=== PATIENT | male | born 1970 | race Hispanic/Latino ===

== ENCOUNTER 2017-01-20 13:54 | Emergency (ER) | payer SELFPAY ==
--- NOTE | 2017-01-20 13:58 | ED.REPORT ---
HPI-Chest Pain 40 and Over Date of Service Jan 20, 2017 ED Provider: Dr. Agee Pt is a generally healthy 46 y/o male presenting to the ED c/o CP onset 02:00 this morning. The patient experienced sudden-onset severe left-sided CP with radiation down the left arm and went to a fire station to be evaluated at which time EMS was called. EMS arrived to find him pale, diaphoretic, and uncomfortable. He was given nitroglycerine which seemed to relieve his symptoms. His CP is 4/10 at time of interview. The patient works nights and did have 4 beers and cocaine at 02:00 this morning. This was the first time he used cocaine. He denies any other drug use and does smoke cigarettes. Pt denies SOB, fever. Nursing Notes Stated Complaint: CHEST PAIN Nursing Notes Reviewed: Yes Allergies: Coded Allergies: No Known Allergies (Unverified , 01/20/17) General Time Seen by MD: 13:58 Chief Complaint Chest pain Hx Obtained From: Patient, EMS Arrived By: Ambulance Sudden in Onset?: No Onset Occurred: 9 - 12 hours ago Symptom Duration: Since onset Location: : Substernal Quality: Painful Radiation: : Arm left Severity: Current: Pain level 4 out of 10 Severity: Maximum: Severe Recent Healthcare: No recent hospitalization Similar Sx Previous: No Past Medical History Past Medical History Gout Past Surgical History Denies Smoking History Current Every Day Smoker Social History Alcohol Use: 1-3 per day Drug Use: Cocaine Ambulatory Status Independent Review of Systems Constitutional: Denies: Chills, Fever Respiratory: Denies: Non-productive cough, Shortness of breath Cardiovascular: Reports: Chest pain GI: Denies: Abdominal pain Skin: Reports Diaphoresis Complete sys rev & neg: except as marked. Physical Exam Initial Vital Signs Vital Signs (First) Date Time Temp Pulse Resp B/P Pulse Ox O2 Delivery O2 Flow Rate FiO2 01/20/17 14:03 37 105 20 127/77 99 Room Air Initial VS: Reviewed, Vital signs abnormal Head / Eyes: Atraumatic, Normocephalic ENT: Mucous membranes moist, Conjunctiva normal Neck: Full range of motion Extremities: Vascular intact, Neuro intact, No swelling Skin: Warm, Dry, No cyanosis Neurologic: Alert, Oriented, Nonfocal Psychiatric: Mood/affect normal, Behavior normal, Normal thought content General/Constitutional: Awake, Alert, No acute distress, Cooperative, Not toxic appearing Respiratory / Chest: Breath sounds NL, Breath sounds = bilat, No respiratory distress, No rales, No rhonchi, No wheezing Cardiovascular: Regular rhythm, Heart sounds NL, No gallop, No murmurs, No rubs , Cap refill not delayed, Peripheral circulation NL, Pulses = bilaterally Heart Rate / Rhythm: Positive: Tachycardia Abdomen: Atraumatic, Soft, Non-tender, No guarding, No rebound, No distention, No palpable mass Interpretation & Diagnostics Lab Results Interpretation Result Diagram: 01/20/17 1358 01/20/17 1358 Test 01/20/17 13:58 01/20/17 16:03 White Blood Count 12.0th/mm3 (3.8-10.1) Red Blood Count 5.00mil/mm3 (4.40-5.80) Hemoglobin 15.6g/dL (13.8-17.2) Hematocrit 44.6% (41.0-50.0) Mean Corpuscular Volume 89.2fL (81-100) Mean Corpuscular Hemoglobin 31.2pg (27.0-35.0) Mean Corpuscular Hemoglobin Concent 35.0% (32.0-37.0) Red Cell Distribution Width 12.9% (12.3-15.4) Platelet Count 393bil/L (150-400) Neutrophils (%) (Auto) 75.5% (40-74) Lymphocytes (%) (Auto) 17.9% (14-46) Monocytes (%) (Auto) 6.0% (4-12) Eosinophils (%) (Auto) 0.2% (0-5) Basophils (%) (Auto) 0.3% (0-3) D-Dimer < 0.50mg/L FEU (<0.50) Sodium Level 141mEq/L (134-144) Potassium Level 3.4mEq/L (3.5-5.2) Chloride Level 100mEq/L (97-108) Carbon Dioxide Level 21mmol/L (18-29) Blood Urea Nitrogen 11mg/dL (6-24) Creatinine 0.64mg/dL (0.76-1.27) Estimat Glomerular Filtration Rate 144mL/min (>59) Glucose Level 113mg/dL (60-99) Calcium Level 10.0mg/dL (8.5-10.1) Magnesium Level 2.3mg/dL (1.6-2.6) Total Bilirubin 0.5mg/dL (0.0-1.2) Aspartate Amino Transf (AST/SGOT) 25U/L (0-50) Alanine Aminotransferase (ALT/SGPT) 21U/L (0-44) Alkaline Phosphatase 82U/L (25-150) Pro-B-Type Natriuretic Peptide 98.10pg/mL (0-86) Total Protein 8.2g/dL (6.4-8.4) Albumin 4.7g/dL (3.4-5.0) Troponin T < 0.010ug/L (0.0-0.011) ECG Interpretation ECG Interpretation: Sinus tachycardia rate 112 Time: 14:22 Interpreted by: ED physician Normal ECG Interpretation: No acute ischemic changes X-Ray Chest Interpretation Chest Xray Interpretation: IMPRESSION: No acute pulmonary process. Dictated by: Jenae Rodriguez M.D. on 01/20/2017 at 14:39 Approved by: Jenae Rodriguez M.D. on 01/20/2017 at 14:39 View: Portable, 1 view Interpretation / Wet Read by: Interpret - Radiologist Re-Eval/Medical Decision Med Decision/Clinical Course Chest pain likely from polysubstance abuse, serial troponins are negative, tachycardia has improved after Ativan. Patient's symptoms have improved and he is sleeping. Do not suspect any acute or life-threatening pathology. We will plan to discharge the patient, strongly encouraged cessation of oral alcohol or drugs especially cocaine. Return and follow-up precautions given. Counseled Regarding: Diagnosis, Lab results, Need for follow-up, When/why to return to ED Discharge & Departure Primary Impression: Chest pain Chest pain type: unspecified Qualified Code: R07.9 - Chest pain, unspecified Additional Impression: Cocaine use Disposition: Home Discharge Condition All VS Reviewed: Yes Condition: Stable Patient Instructions: Chest Pain (ED), Cocaine Abuse (ED) Additional Instructions: No dangerous cause for your chest pain was identified. I suspect it may be caused by the cocaine you used. I recommend not using cocaine as it is known to cause heart damage. Labs including 2 markers looking for heart muscle damage, EKG, and chest x-ray were reassuring. Return to the emergency department if you experience new or worsening chest pain , high fever, profuse sweating, shortness of breath, or for other concerning symptoms. Follow-up with your primary care doctor in 2-3 days for a recheck. Referrals: [facility] Scribe Attestation Portions of this note were transcribed by Romulo Rashid. I, Dr. Agee personally performed the history, physical exam and medical decision-making; I reviewed and confirmed the accuracy of the information in the transcribed note. copies to: [facility] Sonny Agee DO Jan 20, 2017 13:58 ROMULO RASHID Jan 20, 2017 14:08
[2017-01-20 14:03] VITALS: BP 127/77; PULSE 105; RESP 20; O2SAT 99
[2017-01-20] MEDS ORDERED: 0.9% Sodium Chloride 1,000 ML IV ONE (14:07)
[2017-01-20] MEDS ORDERED: Ondansetron 2 mg/mL 2 mL Inj IVPUSH ONE (14:10)
[2017-01-20 14:17] LABS: BASOPHILS % (AUTO) 0.3 % (0-3); EOSINOPHILS % (AUTO) 0.2 % (0-5); Mean Corpuscular Hemoglobin 31.2 pg (27.0-35.0); Mean Corpuscular Volume 89.2 fL (81-100); NEUTROPHILS % (AUTO) 75.5 % (40-74); Platelet Count 393 bil/L (150-400)
[2017-01-20 14:40] LABS: TROPONIN T < 0.010 ug/L (0.0-0.011)
--- NOTE | 2017-01-20 14:41 | DRSVH ---
PROCEDURE: X-RAY CHEST ONE VIEW, PORTABLE ([id number]) INDICATIONS: chest pain TECHNIQUE: One view of the chest was acquired. COMPARISON: None. FINDINGS: Surgical changes and devices: None. Lungs and pleura: No pleural effusions or pneumothorax. Lungs are clear. Mediastinum: Mediastinal contours appear normal. Heart size is normal. Bones and chest wall: No suspicious bony lesions. Overlying soft tissues appear unremarkable. IMPRESSION: No acute pulmonary process. Dictated by: Jenae Rodriguez M.D. on 01/20/2017 at 14:39 Approved by: Jenae Rodriguez M.D. on 01/20/2017 at 14:39
[2017-01-20 14:48] LABS: Magnesium 2.3 mg/dL (1.6-2.6)
[2017-01-20 16:12] VITALS: BP 113/63; PULSE 93; RESP 16; O2SAT 100
[2017-01-20 17:54] VITALS: BP 127/70; PULSE 97; RESP 15; O2SAT 99
== END 2017-01-20 17:56 | disposition home or self-care (01) ==
LOC: EDBD 13:54 → SED 13:54
DX: R07.9 Chest pain, unspecified (principal); F14.10 Cocaine abuse, uncomplicated; F17.200 Nicotine dependence, unspecified, uncomplicated
CPT/HCPCS: 36415; 71010; 80053; 83735; 83880; 84484; 85025; 85378; 93005; 96361; 96374; 96376; 99285; J2060; J7030